=== PATIENT | male | born 1965 | race Caucasian/White ===

== ENCOUNTER 2018-11-29 19:41 | Emergency (ER) | payer SELFPAY ==
--- NOTE | 2018-11-29 20:45 | RAD ---
RIGHT SHOULDER THREE VIEWS: HISTORY: Fall with right shoulder pain. TECHNIQUE: AP internal, external, and scapular Y views of the right shoulder are obtained. FINDINGS: Three views of the right shoulder demonstrate no evidence of right shoulder fractures. Some osteoart hritic change is seen in the right AC joint No evidence of acute fractures or bony lesions seen. 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 POS: [facility]
== END 2018-11-29 21:00 | disposition home or self-care (01) ==
LOC: MADERS 19:41
DX: S43.421A Sprain of right rotator cuff capsule, initial encounter (principal); I25.2 Old myocardial infarction; E78.5 Hyperlipidemia, unspecified; I10 Essential (primary) hypertension; F32.9 Major depressive disorder, single episode, unspecified; F17.220 Nicotine dependence, chewing tobacco, uncomplicated; Z79.899 Other long term (current) drug therapy; Z79.01 Long term (current) use of anticoagulants; W19.XXXA Unspecified fall, initial encounter